=== PATIENT | female | born 1940 | race Caucasian/White ===

== ENCOUNTER → 2017-05-18 | Outpatient (CLI) | payer MEDICARE, OTHER ==
[~2017-05-18] MED LIST: ASPIRIN E.C. 8181 MG PO; CARAFATE 1GM1 G PO; CIPRO 500MG TA500 MG; CIPRO 500MG TA500 MG PO; CLEOCIN HC150 MG/CAP PO; CLEOCIN HCL300 MG PO; COZAAR100 MG PO; FLAGYL 250250 MG/TAB; HCTZ 25MG TAB25 MG PO; INVANZ INJ1 G/VIAL IV; NORCO 325 MG-51 TAB PO; PRAVACHOL 40MG40 MG PO; PROTONIX 40MG T40 MG PO; ZOFRAN 4MG T4 MG/TAB PO; ZYLOPRIM 300MG300 MG PO
== END ==
LOC: COL.RAD 05-14 10:30
DX: R91.8 Other nonspecific abnormal finding of lung field (principal); I77.89 Other specified disorders of arteries and arterioles
CPT/HCPCS: Q9967

== ENCOUNTER → 2018-10-18 | Outpatient (CLI) | payer MEDICARE, OTHER | LOC: MC.RAD 13:22 | DX: Z12.31 Encounter for screening mammogram for malignant neoplasm of breast (principal); N63.42 Unspecified lump in left breast, subareolar; N63.23 Unspecified lump in the left breast, lower outer quadrant ==

== ENCOUNTER → 2018-10-22 | Outpatient (CLI) | payer MEDICARE, OTHER | LOC: MC.RAD 09:19 | DX: N60.02 Solitary cyst of left breast (principal) | CPT/HCPCS: G0279 ==

== ENCOUNTER 2019-05-01 10:37 | Inpatient (IN) | payer MEDICARE, OTHER ==
[2019-05-01] VITALS (9 sets, daily range): BP systolic 155–211; BP diastolic 61–94; PULSE 64–82; TEMP 98.1–98.5
[~2019-05-01] VITALS: Ht 167.6 cm; Wt 89.0 kg
[2019-05-01 12:08] LABS: BASO % 0.5 % (0.0-2.0); EOS # 0.1 (0.0-0.7); EOS % 2.2 % (0-4.0); GRAN % 72.7 % (42.2-75.2); HEMATOCRIT 38.3 % (37.0-47.0); HEMOGLOBIN 12.4 g/dl (12.5-16.0); LYMPH # 1.1 (1.2-3.4); LYMPH % 19.1 % (20.0-51.0); MEAN CELL VOLUME 88 fl (80.0-100.0); MEAN CORPUSCULAR HEMOGLOBIN 29 pg (27.0-31.0); MEAN CORPUSCULAR HGB CONC 32 g/dl (33.0-37.0); MEAN PLATELET VOLUME 9.8 fl (7.4-10.4); MONO # 0.3 (0.1-0.6); MONO % 5.1 % (1.7-9.3); PLATELET COUNT 214 K/mm3 (130-400); RED BLOOD COUNT 4.35 M/mm3 (4.10-5.30); REDCELL DISTRIBUTION WIDTH-CV 14.4 % (11.5-14.5)
[2019-05-01 12:11] LABS: INR 1.1 (0.8-3.0); PROTHROMBIN TIME 12.3 SECONDS (9.7-12.8)
[2019-05-01 12:14] LABS: PARTIAL THROMBOPLASTIN TIME 31.7 SECONDS (26.0-37.0)
[2019-05-01 12:17] LABS: ALANINE AMINOTRANSFERASE < 6 U/L (9-52); ALBUMIN 3.6 gm/dL (3.5-5.0); ALKALINE PHOSPHATASE 69 U/L (50-136); ANION GAP 10 mmol/L (7-16); AST,SGOT 18 U/L (15-37); BILIRUBIN,TOTAL 0.8 mg/dL (0.0-1.0); BLOOD UREA NITROGEN 24 mg/dL (7-17); CALCIUM 9.4 mg/dL (8.4-10.2); CARBON DIOXIDE 31 mmol/L (22-30); CHLORIDE 103 mmol/L (98-107); CREATININE, serum 0.97 (0.52-1.25); GLUCOSE 104 mg/dL (74-106); POTASSIUM 3.4 mmol/L (3.4-5.0); SODIUM 144 mmol/L (137-145); TOTAL PROTEIN 6.8 gm/dL (6.4-8.2)
[2019-05-01 12:36] LABS: COLLECTION METHOD CLEAN CATCH
[2019-05-01 13:01] LABS: MUCOUS Present /lpf; PH 5 (5-8); URINE APPEARANCE Hazy; URINE BACTERIA Rare /hpf; URINE BILIRUBIN Negative (NEGATIVE); URINE BLOOD 2+ (NEGATIVE); URINE COLOR Yellow; URINE GLUCOSE Negative (NEGATIVE); URINE KETONE Negative (NEGATIVE); URINE LEUKOCYTE ESTERASE Trace (NEGATIVE); URINE NITRATE Negative (NEGATIVE); URINE PROTEIN(semi-quant) Negative (NEGATIVE); URINE UROBILINOGEN Negative (NEGATIVE)
--- NOTE | 2019-05-01 13:15 | NUR ---
Admitted from ED with fractured left hip. Denies pain. NPO for surgery.
[2019-05-01] MEDS ORDERED: VITAMIN D 1001000 IU (14:17)
[2019-05-01] MEDS ORDERED: PREVACID 15MG15 M1 (14:18)
--- NOTE | 2019-05-01 15:30 | NUR ---
To surgery per bed with OR staff. Family here.
--- NOTE | 2019-05-01 16:45 | NUR ---
Returned to room per bed from surgery with OR staff. Denies pain. Gauze dressing CDI to left hip. VSS. Family here.
--- NOTE | 2019-05-01 18:35 | NUR ---
Tylenol given for left hip discomfort.
--- NOTE | 2019-05-01 20:30 | NUR ---
Patient is doing well at this time. She is alert and oriented. Denies pain and nausea. Dressings to left hip are C/D/I. Her blood pressure has been elelvated since admission. Called A Garfield NATHAN and she ordered to give her home medications that she did not take today. No other changes at this time. Call light within reach. Will continue to monitor.
[2019-05-02 00:30] VITALS: BP 153/80; PULSE 75; TEMP 97.4
[2019-05-02 03:40] VITALS: BP 142/59; PULSE 61; TEMP 97.8
[2019-05-02] MEDS ORDERED: ASPIRIN 32325 MG/TA1 PO (06:24)
[2019-05-02] MEDS ORDERED: NORCO 325 MG-7.1 TAB PO (06:25)
[2019-05-02] MEDS ORDERED: ULTRAM 50MG TAB50 MG PO (06:27)
--- NOTE | 2019-05-02 06:30 | NUR ---
Patient slept most the night. No complaints of pain. Gave tylenol this am and explained that she may need something for pain when she starts to work with therapy. Dr Tran changed the dressings this am to bandaids. No other changes at this time. Call light within reach.
[2019-05-02 06:59] LABS: HEMOGLOBIN 12.3 g/dl (12.5-16.0)
--- NOTE | 2019-05-02 07:20 | NUR ---
Report from Soo RAZO.
[2019-05-02 08:11] VITALS: BP 153/78; PULSE 80; TEMP 97.6
--- NOTE | 2019-05-02 10:15 | NUR ---
PT SBAX1 UPT TO BR RETURNED TO RECLINER WITH SBA. CARVER CATHETER REMOVED. THERAPY WORKED WITH PATIENT. OK TO DISCHARGE LATER TODAY.
--- NOTE | 2019-05-02 10:46 | NUR ---
AMALIA met with the patient to discuss discharge plan. The patient lives in [place] with her son, Nigel. She reports independence with ADLs and has a walker. The patient's PCP is Dr. Ysabel Rebollar and she receives her medications at the [facility]. She reports no difficulties obtaining her meds. The patient does not have advanced directives in EMR, but she states that she does have them completed and at home. She states her DPOA-HC is her son, Myron, and then her son, Nigel. AMALIA then discussed physical therapies recommendation of home health. The patient reports that she would be agreeable to home health. SW presented the patient with Medicare[employer]gov's list of home health agencies that serve [place]. The patient chose [facility]. AMALIA contacted and faxed a referral to Sisi at [facility]. SW awaiting their screening.
[2019-05-02 12:51] VITALS: BP 179/90; PULSE 62; TEMP 98.1
--- NOTE | 2019-05-02 13:01 | NUR ---
First visit from the records management associate. No needs right now.
--- NOTE | 2019-05-02 14:09 | NUR ---
CALLED MALENA BAUTISTA TO UPDATE ON DISCHARGE.
[2019-05-02 14:55] VITALS: BP 153/85
--- NOTE | 2019-05-02 15:24 | NUR ---
Sisi, at [facility], reports that they can accept the patient for services. SW informed the patient. The patient is to discharge back home with her son today, 05/02, and home health services for care home/PT/OT through [facility]. No additional needs at this time.
--- NOTE | 2019-05-02 16:13 | NUR ---
DISCHARGE INSTRUCTIONS REVIEWED WITH PATEINT QUESTIONS ANSWERED, PT TAKEN TO FRONT VIA WC.
== END 2019-05-02 15:50 | disposition home health service (06) | DRG 482 ==
LOC: COL.ER 10:37 → SURG 11:48
PROVIDERS: Orthopaedic Surgery; Physician Assistant; ADMIT Student in an Organized Health Care Education/Training Program
PROC: 0QS734Z Reposition Left Upper Femur with Internal Fixation Device, Percutaneous Approach (ICD-10-PCS; principal; 2019-05-01 16:00)
DX: S72.012A Unspecified intracapsular fracture of left femur, initial encounter for closed fracture (principal); W01.10XA Fall on same level from slipping, tripping and stumbling with subsequent striking against unspecified object, initial encounter; I10 Essential (primary) hypertension; E78.5 Hyperlipidemia, unspecified; I49.9 Cardiac arrhythmia, unspecified; Z88.8 Allergy status to other drugs, medicaments and biological substances
CPT/HCPCS: 99223-AI; 99239; A4314; A9284; C1713; C1776; J0690; J1100; J2704; J3010

== ENCOUNTER → 2019-10-20 | Outpatient (CLI) | payer MEDICARE, OTHER ==
[~2019-10-20] MED LIST changes: +ASPIRIN 32325 MG/TA1 PO; +NORCO 325 MG-7.1 TAB PO; +PREVACID 15MG15 M1; +ULTRAM 50MG TAB50 MG PO; +VITAMIN D 1001000 IU
== END ==
LOC: MC.RAD 10:25
DX: Z12.31 Encounter for screening mammogram for malignant neoplasm of breast (principal)

== ENCOUNTER 2020-01-06 19:08 | Inpatient (IN) | payer MEDICARE, OTHER ==
[~2020-01-06] VITALS: Ht 167.6 cm; Wt 89.2 kg
[2020-01-06] VITALS (47 sets, daily range): BP systolic 179; BP diastolic 81; PULSE 84; TEMP 97.5; O2SAT 95–99
[2020-01-06 19:47] LABS: BASO % 0.4 % (0.0-2.0); EOS # 0.1 (0.0-0.7); EOS % 0.9 % (0-4.0); GRAN # 3.4 (1.4-6.5); GRAN % 60.5 % (42.2-75.2); HEMATOCRIT 39.8 % (37.0-47.0); LYMPH # 1.8 (1.2-3.4); LYMPH % 31.5 % (20.0-51.0); MEAN CELL VOLUME 91 fl (80.0-100.0); MEAN CORPUSCULAR HEMOGLOBIN 30 pg (27.0-31.0); MEAN CORPUSCULAR HGB CONC 33 g/dl (33.0-37.0); MEAN PLATELET VOLUME 9.9 fl (7.4-10.4); MONO # 0.4 (0.1-0.6); MONO % 6.3 % (1.7-9.3); PLATELET COUNT 245 K/mm3 (130-400); RED BLOOD COUNT 4.38 M/mm3 (4.10-5.30); REDCELL DISTRIBUTION WIDTH-CV 13.1 % (11.5-14.5)
[2020-01-06 19:53] LABS: ALANINE AMINOTRANSFERASE 15 U/L (9-52); ALBUMIN 3.9 gm/dL (3.5-5.0); ALKALINE PHOSPHATASE 81 U/L (50-136); ANION GAP 6 mmol/L (7-16); AST,SGOT 18 U/L (15-37); BILIRUBIN,TOTAL 0.5 mg/dL (0.0-1.0); BLOOD UREA NITROGEN 19 mg/dL (7-17); CALCIUM 9.2 mg/dL (8.4-10.2); CARBON DIOXIDE 30 mmol/L (22-30); CHLORIDE 102 mmol/L (98-107); CREATININE, serum 0.84 (0.52-1.25); GLUCOSE 100 mg/dL (74-106); POTASSIUM 3.8 mmol/L (3.4-5.0); SODIUM 138 mmol/L (137-145)
[2020-01-06 19:57] LABS: PROTHROMBIN TIME 11.8 SECONDS (9.7-12.8)
[2020-01-06 20:00] LABS: PARTIAL THROMBOPLASTIN TIME 32.1 SECONDS (26.0-37.0)
[2020-01-06 20:06] LABS: TROPONIN-I < 0.012 ng/mL (0.000-0.035)
--- NOTE | 2020-01-06 22:19 | NUR ---
Received report from DUNG Hdz.
--- NOTE | 2020-01-06 22:54 | NUR ---
Patient arrives to ICU room 2 via ED stretcher. Patient's son's spouse, Heather, at bedside. Patient A&O x 4 and ambulates into ICU bed with standby assistance. Initial BP is 179/81, other vitals within normal limits. Patient arrives with cardene drip running at 7.5 mg/hr. Denies any pain or discomfort at this time. Patient reports increased urination due to fluids provided in ED; a purewick catheter is placed. Patient tolerating well. Reports PCP involved with decision to stop all home medications as of 4-5 months ago. Nicol notified of patient's arrival and is at bedside at this time. Will continue to monitor.
[2020-01-07] VITALS (522 sets, daily range): BP systolic 142–177; BP diastolic 68–95; PULSE 64–78; TEMP 97.5–98.2; O2SAT 90–100
--- NOTE | 2020-01-07 00:42 | NUR ---
Confirmed orders to continue Cardene drip with Nicol. To continue drip to maintain a SBP between 160-180. Will continue to monitor.
[2020-01-07 05:33] LABS: BASO % 0.3 % (0.0-2.0); EOS # 0.1 (0.0-0.7); EOS % 0.9 % (0-4.0); GRAN % 70.2 % (42.2-75.2); HEMATOCRIT 39.3 % (37.0-47.0); LYMPH # 1.3 (1.2-3.4); LYMPH % 22.4 % (20.0-51.0); MEAN CELL VOLUME 90 fl (80.0-100.0); MEAN CORPUSCULAR HEMOGLOBIN 30 pg (27.0-31.0); MEAN CORPUSCULAR HGB CONC 33 g/dl (33.0-37.0); MEAN PLATELET VOLUME 9.9 fl (7.4-10.4); MONO # 0.3 (0.1-0.6); MONO % 5.9 % (1.7-9.3); PLATELET COUNT 223 K/mm3 (130-400); RED BLOOD COUNT 4.38 M/mm3 (4.10-5.30); REDCELL DISTRIBUTION WIDTH-CV 13.2 % (11.5-14.5)
[2020-01-07 05:40] LABS: CALCIUM 8.9 mg/dL (8.4-10.2); CHOLESTEROL RISK RATIO 5.6; CREATININE, serum 0.58 (0.52-1.25); MAGNESIUM 1.8 mg/dL (1.6-2.3); POTASSIUM 3.3 mmol/L (3.4-5.0)
[2020-01-07 06:08] LABS: TSH w REFLEX 2.38 uIU/mL (0.465-4.680)
--- NOTE | 2020-01-07 07:26 | NUR ---
Report received from Becka RAZO and care resumed.
--- NOTE | 2020-01-07 07:28 | NUR ---
Report given to DUNG Magallanes.
--- NOTE | 2020-01-07 08:35 | NUR ---
Pt up to bathroom. Voided and had BM. Pt now to MRI at this time per wheelchair.
--- NOTE | 2020-01-07 09:19 | NUR ---
Pt returned from MRI and helped back to bed. Placed back on monitor. Dr Gutierrez in to see pt at this time. Will continue to follow.
--- NOTE | 2020-01-07 10:14 | NUR ---
Visited, listened, provided spiritual care, and prayed with the patient.
--- NOTE | 2020-01-07 11:34 | NUR ---
Report called to Ana RAZO on surgical floor. Pt to transfer to room 324.
--- NOTE | 2020-01-07 12:31 | NUR ---
Pt taken by wheelchair up to room 324. Bedside update given to Ana. Will continue to follow.
--- NOTE | 2020-01-07 14:20 | NUR ---
Blood pressure meds given per order. Sitting up in chair without complaint.
--- NOTE | 2020-01-07 18:00 | NUR ---
Up in room without complaint. No weakness or numbness. Blood pressure 160/80's.
[2020-01-08 04:09] VITALS: BP 141/66; PULSE 75; TEMP 97.8
--- NOTE | 2020-01-08 04:33 | NUR ---
Pt on RA > 24hrs; completing intervention per [employer]oco.
--- NOTE | 2020-01-08 04:54 | NUR ---
RESTING QUIETLY/SLEEPING. NO c/o LEFT ARM PAIN OR CHEST DISCOMFORT.
[2020-01-08 07:49] VITALS: BP 147/61; PULSE 64; TEMP 97.5
[2020-01-08] MEDS ORDERED: PRAVACHOL 40MG40 MG PO (09:05)
[2020-01-08] MEDS ORDERED: HCTZ 25MG TAB25 MG PO (09:06)
[2020-01-08] MEDS ORDERED: ASPIRIN 81M81 MG/TA2 PO (09:06)
[2020-01-08] MEDS ORDERED: COZAAR100 MG PO (09:06)
--- NOTE | 2020-01-08 11:05 | NUR ---
Ambulatory in room by self. No complaints. No facial tingling or asymmetry. Equal hand grasps. Dr. Gutierrez saw patient. Dismissal instructions reviewed. Dismissed to home per w/c with friend.
== END 2020-01-08 11:05 | disposition home or self-care (01) | DRG 305 ==
LOC: COL.ER 19:08 → ICU 21:51 → SURG 01-07 11:50
PROVIDERS: Emergency Medicine; ADMIT Internal Medicine
DX: I16.0 Hypertensive urgency (principal); G81.94 Hemiplegia, unspecified affecting left nondominant side; G45.9 Transient cerebral ischemic attack, unspecified; E78.5 Hyperlipidemia, unspecified; Z88.8 Allergy status to other drugs, medicaments and biological substances; T46.5X6A Underdosing of other antihypertensive drugs, initial encounter; Z91.128 Patient's intentional underdosing of medication regimen for other reason; Z79.82 Long term (current) use of aspirin; I10 Essential (primary) hypertension
CPT/HCPCS: 99222-AI; 99232-AI; 99239; A9585; J1650; J7030; J7050

== ENCOUNTER → 2020-01-11 | Outpatient (CLI) | payer MEDICARE, OTHER ==
[~2020-01-11] MED LIST changes: +ASPIRIN 81M81 MG/TA2 PO
== END ==
LOC: COL.VAS 13:41
DX: R41.82 Altered mental status, unspecified (principal)

== ENCOUNTER 2020-01-20 15:34 | Observation (INO) | payer MEDICARE, OTHER ==
[2020-01-20] VITALS (7 sets, daily range): BP systolic 166–182; BP diastolic 73–88; PULSE 79–92; TEMP 97.4–97.9
[~2020-01-20] VITALS: Ht 165.1 cm; Wt 83.6 kg
[2020-01-20 17:17] LABS: BASO % 0.3 % (0.0-2.0); EOS % 0.5 % (0-4.0); GRAN # 4.7 (1.4-6.5); GRAN % 75.6 % (42.2-75.2); HEMATOCRIT 42.3 % (37.0-47.0); HEMOGLOBIN 13.7 g/dl (12.5-16.0); LYMPH # 1.1 (1.2-3.4); LYMPH % 18.3 % (20.0-51.0); MEAN CELL VOLUME 91 fl (80.0-100.0); MEAN CORPUSCULAR HEMOGLOBIN 30 pg (27.0-31.0); MEAN CORPUSCULAR HGB CONC 32 g/dl (33.0-37.0); MEAN PLATELET VOLUME 10.4 fl (7.4-10.4); MONO # 0.3 (0.1-0.6); PLATELET COUNT 259 K/mm3 (130-400); RED BLOOD COUNT 4.65 M/mm3 (4.10-5.30); REDCELL DISTRIBUTION WIDTH-CV 13.2 % (11.5-14.5)
[2020-01-20 17:20] LABS: INR 1.1 (0.8-3.0); PROTHROMBIN TIME 12.5 SECONDS (9.7-12.8)
[2020-01-20 17:23] LABS: PARTIAL THROMBOPLASTIN TIME 30.4 SECONDS (26.0-37.0)
[2020-01-20 17:25] LABS: ALBUMIN 4.1 gm/dL (3.5-5.0); CALCIUM 9.4 mg/dL (8.4-10.2); CREATININE, serum 1.54 (0.52-1.25); POTASSIUM 3.4 mmol/L (3.4-5.0); TOTAL PROTEIN 7.3 gm/dL (6.4-8.2)
[2020-01-21] VITALS: BP 176/88; PULSE 92; TEMP 97.9
[2020-01-21] MEDS ORDERED: PROTONIX 40MG T40 MG PO (00:02)
[2020-01-21 01:40] LABS: COLLECTION METHOD CLEAN CATCH
[2020-01-21 01:47] LABS: PH 6 (5-8); SQUAMOUS EPITHELIAL None Seen /hpf; URINE APPEARANCE Clear; URINE BACTERIA None Seen /hpf; URINE BILIRUBIN Negative (NEGATIVE); URINE BLOOD 1+ (NEGATIVE); URINE COLOR Straw; URINE GLUCOSE Negative (NEGATIVE); URINE KETONE Negative (NEGATIVE); URINE LEUKOCYTE ESTERASE Negative (NEGATIVE); URINE NITRATE Negative (NEGATIVE); URINE PROTEIN(semi-quant) Negative (NEGATIVE); URINE RBC 0-2 /hpf; URINE UROBILINOGEN Negative (NEGATIVE)
[2020-01-21 04:30] VITALS: BP 127/58; PULSE 86; TEMP 97.4
[2020-01-21 05:52] LABS: BASO % 0.2 % (0.0-2.0); GRAN # 5.1 (1.4-6.5); GRAN % 89.6 % (42.2-75.2); HEMATOCRIT 40.3 % (37.0-47.0); HEMOGLOBIN 13.2 g/dl (12.5-16.0); LYMPH # 0.5 (1.2-3.4); LYMPH % 8.9 % (20.0-51.0); MEAN CELL VOLUME 90 fl (80.0-100.0); MEAN CORPUSCULAR HEMOGLOBIN 30 pg (27.0-31.0); MEAN CORPUSCULAR HGB CONC 33 g/dl (33.0-37.0); MEAN PLATELET VOLUME 10.8 fl (7.4-10.4); MONO # 0.1 (0.1-0.6); MONO % 0.9 % (1.7-9.3); PLATELET COUNT 219 K/mm3 (130-400); RED BLOOD COUNT 4.48 M/mm3 (4.10-5.30); REDCELL DISTRIBUTION WIDTH-CV 13.1 % (11.5-14.5)
[2020-01-21 06:02] LABS: CALCIUM 8.9 mg/dL (8.4-10.2); CREATININE, serum 1.17 (0.52-1.25); MAGNESIUM 1.7 mg/dL (1.6-2.3); POTASSIUM 3.6 mmol/L (3.4-5.0)
[2020-01-21 08:18] VITALS: BP 149/63; PULSE 93; TEMP 97.4
--- NOTE | 2020-01-21 09:10 | NUR ---
PATIENT DENIES PAIN AT THIS TIME. IV FLUIDS STOPPED PER DR. YOUNGBLOOD. PATIENT DENIES ANY NEEDS AT THIS TIME.
--- NOTE | 2020-01-21 10:45 | NUR ---
RESUME [facility] AND [facility] DOSES VORB TO THIS NURSE.
[2020-01-21 11:52] VITALS: BP 150/69; PULSE 84; TEMP 98.2
[2020-01-21] MEDS ORDERED: NORVASC 10MG10 MG PO (13:24)
[2020-01-21] MEDS ORDERED: NORCO 325 MG-51 TAB PO (13:36)
--- NOTE | 2020-01-21 14:35 | NUR ---
Plan: Plan to return home with sons support Nigel Fam . Assess: Patient reports that she resides locally and lives alone. Patient shares that her PCP is with and [facility] on February 02, 2020. Patient shares that she uses [facility] for medications, and uses a care mainly in the community but not at home. Son will transport home and stated that this works better for her. ACtion: Educated on resources and services availble. Nothing Further.
--- NOTE | 2020-01-21 16:05 | NUR ---
PATIENT RIGHT AC AND LEFT HAND INT'S DISCONTINUED PER PENDING DISCHARGE. TIPS INTACT. PATIENT TOLERATED WELL. DISCHARGE INSTRUCTIONS REVIEWED WITH PATIENT. ALL QUESTIONS ANSWERED. PATIENT PERSONAL BELONGINGS GATHERED. PATIENT TAKEN TO PERSONAL VEHICLE VIA WHEELCHAIR BY SURGICAL STAFF. PATIENT DISCHARGED.
== END 2020-01-21 16:05 | disposition home or self-care (01) ==
LOC: COL.ER 15:34 → SURG 17:42 → COL.ER 17:54 → SURG 01-21 16:05
PROVIDERS: Emergency Medicine; Nurse Practitioner Family; ADMIT Surgery
DX: K43.6 Other and unspecified ventral hernia with obstruction, without gangrene (principal); K56.609 Unspecified intestinal obstruction, unspecified as to partial versus complete obstruction; I10 Essential (primary) hypertension; E78.5 Hyperlipidemia, unspecified; M10.9 Gout, unspecified; G89.29 Other chronic pain; M54.9 Dorsalgia, unspecified; M25.559 Pain in unspecified hip; N17.9 Acute kidney failure, unspecified; G47.33 Obstructive sleep apnea (adult) (pediatric); Z90.710 Acquired absence of both cervix and uterus; Z90.49 Acquired absence of other specified parts of digestive tract; Z96.653 Presence of artificial knee joint, bilateral; Z79.01 Long term (current) use of anticoagulants; Z79.82 Long term (current) use of aspirin; Z86.73 Personal history of transient ischemic attack (TIA), and cerebral infarction without residual deficits
CPT/HCPCS: 99222; 99232-AI; C1781; G0378; G0379; J0360; J2405; J2704; J3010; J7030; J7120

== ENCOUNTER 2021-01-22 15:00 | Outpatient (RCR) | payer MEDICARE, OTHER ==
[~2021-01-22 15:00] MED LIST changes: +NORVASC 10MG10 MG PO
== END 2021-01-30 13:01 | disposition home or self-care (01) ==
LOC: MKS.ESL.PT 15:00
DX: M48.061 Spinal stenosis, lumbar region without neurogenic claudication (principal)